=== PATIENT | male | born 1940 | race Caucasian/White ===

== ENCOUNTER 2019-03-11 09:03 | Inpatient (IN) | payer MEDICARE ==
[~2019-03-11] VITALS: Ht 172.7 cm; Wt 90.0 kg
[~2019-03-11 09:03] MED LIST: AMIO100T4 PO; APIX5TAB PO; BACITRACIN 50,000 UNIT ONE; BUPIVACAINE/PF 0.5% ONE; LISI-170 PO; MAGN400C PO; MULT-717 PO; SIMV40TA3 PO; TAMS-11 PO; THROMBIN 5,000 UNIT VIAL TP ONE; TRAZ-137 PO
[2019-03-11] MEDS ORDERED: LACTATED RINGERS 1,000 ML IV SCH (09:33)
[2019-03-11] MEDS ORDERED: FENTANYL PF 250 MCG/5ML ONE (09:52)
[2019-03-11] MEDS ORDERED: GABAPENTIN 300 MG CAPSULE PO ONE (10:00)
[2019-03-11] MEDS ORDERED: ACETAMINOPHEN 500 MG TABLET PO ONE (10:00)
[2019-03-11] MEDS ORDERED: EPINEPHRINE 1 MG/ML, 1ML INFIL ONE (11:51)
[2019-03-11] MEDS ORDERED: ONDANSETRON 2MG/ML, 2ML ONE (11:51)
[2019-03-11] MEDS ORDERED: CEFAZOLIN 1,000 MG ONE (11:51)
[2019-03-11] MEDS ORDERED: DEXAMETHASONE 4 MG/ML, 1ML ONE (11:51)
[2019-03-11] MEDS ORDERED: PROPOFOL 10 MG/ML, 20ML ONE (11:51)
[2019-03-11] MEDS ORDERED: METOPROLOL 1 MG/ML, 5ML IV PRN (12:00)
[2019-03-11] MEDS ORDERED: PROMETHAZINE 25 MG/ML, 1ML IV PRN (12:00)
[2019-03-11] MEDS ORDERED: OXYcodone 5 MG/5 ML ORAL.SOL UDC PO PRN (12:00)
[2019-03-11] MEDS ORDERED: FENTANYL PF 100 MCG/2ML IV PRN (12:00)
[2019-03-11] MEDS ORDERED: HYDROmorphone 2 MG/ML, 1ML IVPush PRN (12:00)
[2019-03-11] MEDS ORDERED: ALBUTEROL/IPRATROPIUM 2.5MG/0.5MG, 3 ML NPPB PRN (12:00)
[2019-03-11] MEDS ORDERED: DIAZEPAM 5 MG/ML, 2ML IVPush PRN (12:00)
[2019-03-11] MEDS ORDERED: hydrALAzine 20 MG/ML, 1ML IV PRN (12:00)
[2019-03-11] MEDS ORDERED: EPHEDRINE 50 MG/ML, 1ML ONE (12:14)
[2019-03-11] MEDS ORDERED: BUPIVACAINE LIPOSOME/PF 10ML INFIL ONE (12:56)
[2019-03-11] MEDS ORDERED: VANCOMYCIN 1,000 MG IM ONE (12:59)
[2019-03-11] MEDS ORDERED: MAGNESIUM HYDROXIDE 8%, 30ML UDC PO PRN (13:30)
[2019-03-11] MEDS ORDERED: METHOCARBAMOL 750 MG TABLET PO PRN (13:30)
[2019-03-11] MEDS ORDERED: HYDROcodone/APAP 5/325 TABLET PO PRN (13:30)
[2019-03-11] MEDS ORDERED: CYCLOBENZAPRINE 10 MG TABLET PO PRN (13:30)
[2019-03-11] MEDS ORDERED: ONDANSETRON 2MG/ML, 2ML IVPush PRN (13:30)
[2019-03-11] MEDS ORDERED: SENNA/DOCUSATE TABLET PO PRN (13:30)
[2019-03-11] MEDS ORDERED: morphine SULFATE 10 MG/ML, 1ML IVPush PRN (13:30)
[2019-03-11] MEDS ORDERED: OXYcodone/APAP 5/325MG TABLET PO PRN (13:30)
[2019-03-11] MEDS ORDERED: DIPHENHYDRAMINE 50 MG/ML, 1ML IVPush PRN (13:30)
[2019-03-11] MEDS ORDERED: PHARMACY MAY ADJ FOR RENAL FX MC PRN (13:30)
[2019-03-11] MEDS ORDERED: PROMETHAZINE 25 MG/ML, 1ML IM PRN (13:30)
[2019-03-11] MEDS: NS + 20MEQ KCL 1,000 ML IV SCH (15:27)
[2019-03-11] MEDS ORDERED: VANCOMYCIN 1,000 MG ONE (15:34)
[2019-03-11] MEDS ORDERED: ROCURONIUM 10MG/ML,5ML ONE (15:43)
[2019-03-11] MEDS ORDERED: SUCCINYLCHOLINE 20 MG/ML, 10ML ONE (15:43)
[2019-03-11] MEDS: HYDROcodone/APAP 10/325 MG TABLET PO PRN ×2 (16:08→21:42)
[2019-03-11 19:12] VITALS: BP 158/76
[2019-03-11] MEDS: CEFAZOLIN PMX 1GM/50ML 50 ML IVPB SCH (20:09)
[2019-03-11] MEDS ORDERED: TRAZODONE 100MG TABLET PO SCH (21:00)
[2019-03-11] MEDS ORDERED: TAMSULOSIN 0.4 MG CAP.ER.24H PO SCH (21:00)
[2019-03-11] MEDS ORDERED: SIMVASTATIN 40 MG TABLET PO SCH (21:00)
[2019-03-11] MEDS: LISINOPRIL 20 MG TABLET PO SCH (21:41)
[2019-03-12 01:47] VITALS: BP 135/65
[2019-03-12] MEDS: CEFAZOLIN PMX 1GM/50ML 50 ML IVPB SCH (04:00)
[2019-03-12 04:06] VITALS: BP 143/75
[2019-03-12] MEDS: LISINOPRIL 20 MG TABLET PO SCH (08:14)
[2019-03-12] MEDS ORDERED: AMIODARONE 200 MG TABLET PO SCH (09:00)
[2019-03-12 09:33] VITALS: BP 117/65
[2019-03-12] MEDS: NS + 20MEQ KCL 1,000 ML IV SCH (10:43)
[2019-03-12 13:00] VITALS: BP 164/69
[2019-03-12] MEDS ORDERED: CEPH-368 PO (13:03)
[2019-03-12] MEDS ORDERED: CYCL-259 PO (13:04)
[2019-03-12] MEDS ORDERED: HYDR-36 PO (13:05)
== END 2019-03-12 14:24 | disposition home or self-care (01) | DRG 516 ==
LOC: OUT 09:03 → ORIP 13:15 → 4NE 14:23
PROVIDERS: ADMIT Neurological Surgery; ATTEND Neurological Surgery
PROC: 01NB0ZZ Release Lumbar Nerve, Open Approach (ICD-10-PCS; 2019-03-11)
PROC: 01NR0ZZ Release Sacral Nerve, Open Approach (ICD-10-PCS; 2019-03-11)
PROC: 5A09357 Assistance with Respiratory Ventilation, Less than 24 Consecutive Hours, Continuous Positive Airway Pressure (ICD-10-PCS; principal; 2019-03-12)
DX: M48.061 Spinal stenosis, lumbar region without neurogenic claudication (principal); G99.2 Myelopathy in diseases classified elsewhere; M19.90 Unspecified osteoarthritis, unspecified site; M48.07 Spinal stenosis, lumbosacral region; M54.16 Radiculopathy, lumbar region; I10 Essential (primary) hypertension; Z82.61 Family history of arthritis
CPT/HCPCS: 72040; G0378; J0171; J0690; J1100; J2405; J2704; J3010; J3370; J3480; J0330; J7120